=== PATIENT | female | born 1950 | race Caucasian/White ===

== ENCOUNTER 2016-07-06 17:44 | Emergency (ER) | payer MEDICARE, OTHER ==
[~2016-07-06] VITALS: Ht 160 cm; Wt 46.3 kg
[~2016-07-06 17:44] MED LIST: OYST500T77; POLYDRO
[2016-07-06 17:47] VITALS: BP 159/83; PULSE 99; RESP 18; TEMP 99.5; O2SAT 94
[2016-07-06 18:00] VITALS: O2SAT 95
[2016-07-06] MEDS ORDERED: methylPREDNISolone SOD SUCC 125 MG/2 ML VIAL IVP ONE (18:00)
[2016-07-06] MEDS ORDERED: SODIUM CHLORIDE 0.9% FLUSH 5 ML FLUSH IVF PRN (18:00)
[2016-07-06] MEDS: RESP: ALBUTEROL 2.5 MG/IPRATROPIUM 0.5 MG NEB (SCH) INH ×3 (18:00→18:18)
--- NOTE | 2016-07-06 18:01 | PD ---
HPI Chief Complaint: Cold / Flu Symptoms Time Seen by Provider: 17:51 Travel History International Travel<30 days: No Contact w/Intl Traveler<30days: No Traveled to known affect area: No History of Present Illness HPI 66-year-old female says she been sick for a couple of days. She's had sore throat and cough. Runny nose. He does smoke cigarettes. She has never been diagnosed with COPD. she's been feeling short of breath. She has no history of hypertension or diabetes. She has not had any chest pain. [facility]LY [facility] Past Medical History Diminished Hearing: No Respiratory: Yes (ASTHMA) ?: Not Social History Alcohol Use: Yes (SOCIAL) Tobacco Use: Yes (6 CIGS PER DAY) Allergies-Medications (Allergen,Severity, Reaction): Coded Allergies: Cipro (Verified Allergy, Severe, Nausea/Vomiting, 07/06/16) Uncoded Allergies: MUSCLE RELAXERS (Allergy, Severe, Hives, 07/06/16) Reported Meds & Prescriptions Reported Meds & Active Scripts Active No Active Prescriptions or Reported Medications Review of Systems General / Constitutional: No: Fever, Chills Eyes: No: Diploplia HENT: Positive: Sore Throat, Rhinitis Cardiovascular: No: Chest Pain or Discomfort, Palpitations Respiratory: Positive: Cough, Shortness of Breath, Wheezing Gastrointestinal: No: Vomiting, Diarrhea Genitourinary: No: Frequency Musculoskeletal: No: Myalgias Skin: No Rash Physical Exam Narrative GENERAL: Thin female SKIN: Warm and dry. HEAD: Atraumatic. Normocephalic. EYES: Pupils equal and round. No scleral icterus. No injection or drainage. ENT: No nasal bleeding or discharge. Mucous membranes pink and moist. NECK: Trachea midline. No JVD. CARDIOVASCULAR: Regular rate and rhythm. No murmur appreciated. RESPIRATORY: No accessory muscle use. Bilateral expiratory wheezes. Breath sounds equal bilaterally. GASTROINTESTINAL: Abdomen soft, non-tender, nondistended. Hepatic and splenic margins not palpable. MUSCULOSKELETAL: No obvious deformities. No clubbing. No cyanosis. No edema. NEUROLOGICAL: Awake and alert. No obvious cranial nerve deficits. Motor grossly within normal limits. Normal speech. PSYCHIATRIC: Appropriate mood and affect; insight and judgment normal. Data Data Last Documented VS Vital Signs Date Time Temp Pulse Resp B/P Pulse Ox O2 Delivery O2 Flow Rate FiO2 07/06/16 18:40 113 17 94 Room Air 07/06/16 17:47 99.5 159/83 Orders Complete Blood Count With Diff (07/06/16 17:58) Basic Metabolic Panel (Bmp) (07/06/16 17:58) Influenzae A/B Antigen (07/06/16 17:58) Electrocardiogram (07/06/16 17:58) Oximetry (07/06/16 17:58) Chest, Single Ap (07/06/16 17:58) Sodium Chloride 0.9% Flush (Ns Flush) (07/06/16 18:00) Methylprednisolone So Succ Inj (Solumedr (07/06/16 18:00) Albuterol-Ipratropium Neb (Duoneb Neb) (07/06/16 18:00) Labs Laboratory Tests Test 07/06/16 18:10 White Blood Count 15.8 TH/MM3 Red Blood Count 4.60 MIL/MM3 Hemoglobin 14.0 GM/DL Hematocrit 40.6 % Mean Corpuscular Volume 88.2 FL Mean Corpuscular Hemoglobin 30.4 PG Mean Corpuscular Hemoglobin 34.4 % Concent Red Cell Distribution Width 12.8 % Platelet Count 260 TH/MM3 Mean Platelet Volume 8.8 FL Neutrophils (%) (Auto) 74.9 % Lymphocytes (%) (Auto) 13.5 % Monocytes (%) (Auto) 6.8 % Eosinophils (%) (Auto) 0.7 % Basophils (%) (Auto) 4.1 % Neutrophils # (Auto) 11.9 TH/MM3 Lymphocytes # (Auto) 2.1 TH/MM3 Monocytes # (Auto) 1.1 TH/MM3 Eosinophils # (Auto) 0.1 TH/MM3 Basophils # (Auto) 0.6 TH/MM3 CBC Comment DIFF FINAL Differential Comment Sodium Level 139 MEQ/L Potassium Level 3.6 MEQ/L Chloride Level 100 MEQ/L Carbon Dioxide Level 29.0 MEQ/L Anion Gap 10 MEQ/L Blood Urea Nitrogen 22 MG/DL Creatinine 0.69 MG/DL Estimat Glomerular Filtration 85 ML/MIN Rate Random Glucose 102 MG/DL Calcium Level 8.6 MG/DL [facility] Medical Decision Making Medical Screen Exam Complete: Yes Emergency Medical Condition: Yes Medical Record Reviewed: Yes Differential Diagnosis Differential includes pneumonia, CHF, COPD exacerbation Narrative Course He was given repeated nebulizers and has had some improvement in her wheezing. She does have residual wheezing. Chest x-ray shows hyperinflation without infiltrates. Impression is chronic obstructive pulmonary disease. She has been given Solu-Medrol. She'll be released with Z-Darke, prednisone and albuterol Diagnosis Primary Impression: COPD (chronic obstructive pulmonary disease) with acute bronchitis Scripts Prednisone 20 Mg Tab60 Mg PO DAILY 5 Days Ref 0 40 MG twice a day x 3 days, then 20 MG daily x 3 days, then 10 MG daily x 3 days Prov:Kalpesh Tucker MD 07/06/16 Albuterol 18 GM Inh (Ventolin Hfa 18 GM Inh)90 Mcg/Act Aer2 Puff INH Q4H PRN ( SHORTNESS OF BREATH) #1 INHALER Ref 0 Prov:Kalpesh Tucker MD 07/06/16 Azithromycin (Zithromax Z-Drake)250 Mg [id number] Mg PO DIRECTED #1 DSPK Ref 0 500 MG (2 tabs) day 1, then 1 tab days 2-5. Prov:Kalpesh Tucker MD 07/06/16 Disposition: 01 DISCHARGE HOME Condition: Stable Kalpesh Tucker MD Jul 06, 2016 18:01
[2016-07-06 18:28] LABS: AUTOMATED NEUTROPHIL # 11.9 TH/MM3 (1.8-7.7); BASOPHIL # 0.6 TH/MM3 (0-0.2); BASOPHIL % 4.1 % (0.0-2.0); EOSINOPHIL # 0.1 TH/MM3 (0-0.4); EOSINOPHIL % 0.7 % (0.0-4.0); HEMATOCRIT 40.6 % (35.0-46.0); LYMPH % 13.5 % (9.0-44.0); LYMPHOCYTE # 2.1 TH/MM3 (1.0-4.8); MEAN CELL VOLUME 88.2 FL (80.0-100.0); MEAN CORPUSCULAR HEMOGLOBIN 30.4 PG (27.0-34.0); MEAN CORPUSCULAR HGB CONC 34.4 % (32.0-36.0); MONO % 6.8 % (0.0-8.0); NEUT % 74.9 % (16.0-70.0); PLATELET COUNT 260 TH/MM3 (150-450); RED CELL DISTRIBUTION WIDTH 12.8 % (11.6-17.2); WHITE BLOOD COUNT 15.8 TH/MM3 (4.0-11.0)
[2016-07-06 18:29] LABS: HEMO FLAGS DIFF FINAL
[2016-07-06 18:40] VITALS: PULSE 113; RESP 17; O2SAT 94
[2016-07-06 18:55] LABS: POTASSIUM 3.6 MEQ/L (3.5-5.1)
[2016-07-06 19:10] VITALS: BP 128/51; PULSE 112; RESP 17; O2SAT 96
--- NOTE | 2016-07-06 19:17 | RADHPO ---
EXAM DATE/TIME: 07/06/2016 18:56 [facility] COMPARISON: No previous studies available for comparison. INDICATIONS : Cough, shortness of breath, and wheezing. MEDICAL HISTORY : Asthma SURGICAL HISTORY : Tonsillectomy. Appendectomy. ENCOUNTER: Initial ACUITY: 4 - 6 days PAIN SCORE: 0/10 LOCATION: Bilateral chest FINDINGS: The heart size is normal. There is some increased density at the left base. Although s ome of this may be secondary to overlying soft tissue it does appear asymmetric with the right side s uggesting some degree of underlying consolidation. A significant effusion is not seen. The hilar s tructures are normal. CONCLUSION: Asymmetric density with increased density at the left base likely representing some d egree of atelectasis or consolidation. Tan Najera MD on July 06, 2016 at 19:10 Board Certified Radiologist. This report was verified electronically.
[2016-07-06] MEDS ORDERED: PRED20 PO (19:19)
[2016-07-06] MEDS ORDERED: VENTAER INH (19:19)
[2016-07-06] MEDS ORDERED: ZITHTAB PO (19:19)
--- NOTE | 2016-07-07 14:13 | EKG ---
Date Performed: 07/06/2016 Time Performed: 18:43:04 PTAGE: 66 years EKG: Sinus tachycardia Extensive ST-T changes are nonspecific Borderline ECG NO PREVIOUS TRACING DOCTOR: Nithin Herron Interpretating Date/Time 07/07/2016 14:10:34
== END 2016-07-06 19:57 | disposition home or self-care (01) ==
LOC: PHED 17:44
DX: J44.0 Chronic obstructive pulmonary disease with (acute) lower respiratory infection (principal); J45.909 Unspecified asthma, uncomplicated; R00.0 Tachycardia, unspecified; F17.210 Nicotine dependence, cigarettes, uncomplicated
CPT/HCPCS: 71010; 80048; 85025; 87804; 93005; 94640; 94664; 96374; 99284; J2930

== ENCOUNTER 2016-10-08 22:09 | Emergency (ER) | payer MEDICARE ==
[~2016-10-08] VITALS: Ht 160 cm; Wt 48.1 kg
[~2016-10-08 22:09] MED LIST changes: -OYST500T77; -POLYDRO; +PRED20 PO; +VENTAER INH; +ZITHTAB PO
[2016-10-08 22:16] VITALS: BP 123/55; PULSE 91; RESP 16; TEMP 99.4; O2SAT 95
--- NOTE | 2016-10-08 22:49 | PD ---
HPI Chief Complaint: Cold / Flu Symptoms Time Seen by Provider: 22:38 Travel History International Travel<30 days: No Contact w/Intl Traveler<30days: No Traveled to known affect area: No History of Present Illness HPI The patient is a 66-year-old female that complains of a cough productive of yellow sputum with right posterior pleuritic chest pain for approximately 12 hours. She had a similar episode on July 06 and was given Zithromax but this cleared up. She used to smoke but quit smoking a year ago. She denies any fever. Her pain as a 9/10 and sharp and pleuritic. The patient states she does not want any blood work, all she wants is a chest x-ray and antibiotics. PFSH Past Medical History Diminished Hearing: No Respiratory: Yes (ASTHMA) Tetanus Vaccination: Unknown Influenza Vaccination: No ?: Not Menopausal: Yes Past Surgical History Appendectomy: Yes Tonsillectomy: Yes Other Surgery: Yes Social History Alcohol Use: Yes (2 DRINKS DAILY) Tobacco Use: No (1/2 PPD) Substance Use: No Allergies-Medications (Allergen,Severity, Reaction): Coded Allergies: Cipro (Verified Allergy, Severe, Nausea/Vomiting, 10/08/16) Uncoded Allergies: MUSCLE RELAXERS (Allergy, Severe, Hives, 07/06/16) Reported Meds & Prescriptions Reported Meds & Active Scripts Active Zithromax Z-Drake (Azithromycin) 250 Mg Dspk 250 Mg PO DIRECTED 500 MG (2 tabs) day 1, then 1 tab days 2-5. Review of Systems Except as stated in HPI: all other systems reviewed are Neg Physical Exam Narrative GENERAL: The patient is alert, oriented 3 in no respiratory distress. Her vital signs are normal. SKIN: Focused skin assessment warm/dry. HEAD: Atraumatic. Normocephalic. EYES: Pupils equal and round. No scleral icterus. No injection or drainage. ENT: No nasal bleeding or discharge. Mucous membranes pink and moist. NECK: Trachea midline. No JVD. CARDIOVASCULAR: Regular rate and rhythm. No murmur appreciated. RESPIRATORY: No accessory muscle use. Scattered rhonchi and wheezes are heard in all lung ortiz, particularly on the right posteriorly. Breath sounds equal bilaterally. GASTROINTESTINAL: Abdomen soft, non-tender, nondistended. Hepatic and splenic margins not palpable. MUSCULOSKELETAL: No obvious deformities. No clubbing. No cyanosis. No edema. NEUROLOGICAL: Awake and alert. No obvious cranial nerve deficits. Motor grossly within normal limits. Normal speech. PSYCHIATRIC: Appropriate mood and affect; insight and judgment normal. Data Data Last Documented VS Vital Signs Date Time Temp Pulse Resp B/P Pulse Ox O2 Delivery O2 Flow Rate FiO2 10/08/16 22:29 10/08/16 22:16 99.4 91 16 95 Room Air Orders Chest, Pa & Lat (10/08/16 22:44) [facility] Medical Decision Making Medical Screen Exam Complete: Yes Emergency Medical Condition: Yes Medical Record Reviewed: Yes Interpretation(s) The chest x-ray is normal. Differential Diagnosis Bronchitis, pneumonia, pulmonary embolushighly unlikely, viral upper respiratory infection Narrative Course The patient has bronchitis. She is expecting a prescription for a Z-Drake and this will be written. Diagnosis Primary Impression: Bronchitis Additional Instructions: Follow-up with your primary care physician. Zithromax works if this is a bacterial infection. If this is a virus he will simply have to drink plenty of liquids, rest and fight at yourself. Antibiotics do not work with a virus. Med/Other Pt SpecificInfo: Prescription(s) given Scripts Azithromycin (Zithromax Z-Drake)250 Mg [id number] Mg PO DIRECTED #1 DSPK Ref 0 500 MG (2 tabs) day 1, then 1 tab days 2-5. Prov:Yung Funez MD 10/08/16 Disposition: 01 DISCHARGE HOME Condition: Stable Yung Funez MD Oct 08, 2016 22:49
--- NOTE | 2016-10-08 23:27 | RADHPO ---
EXAM DATE/TIME: 10/08/2016 23:02 [facility] COMPARISON: CHEST SINGLE AP, July 06, 2016, 18:56. INDICATIONS : Flu symtoms. MEDICAL HISTORY : None. SURGICAL HISTORY : None. ENCOUNTER: Initial ACUITY: 4 - 6 days PAIN SCORE: 6/10 LOCATION: Bilateral chest FINDINGS: PA and lateral views of the chest demonstrate the lungs to be symmetrically aerated without evidence of mass, infiltrate or effusion. The cardiomediastinal contours are unremarkable. Osseous structure s are intact. CONCLUSION: Normal examination. Abraham Harrington MD on October 08, 2016 at 23:24 Board Certified Radiologist. This report was verified electronically.
[2016-10-08] MEDS ORDERED: ZITHTAB PO (23:49)
[2016-10-09] MEDS ORDERED: AZITHROMYCIN 250 MG TAB PO ONE
[2016-10-09 00:23] VITALS: BP 120/58
== END 2016-10-09 00:34 | disposition home or self-care (01) ==
LOC: PHED 22:09
DX: J40 Bronchitis, not specified as acute or chronic (principal); Z87.891 Personal history of nicotine dependence
CPT/HCPCS: 71020; 99283